=== PATIENT | female | born 1950 | race Caucasian/White ===

== ENCOUNTER 2017-03-02 22:28 | Inpatient (IN) | payer MEDICARE, MEDICAID ==
[~2017-03-02] VITALS: Ht 170.2 cm; Wt 56.3 kg
[2017-03-02 22:59] LABS: Basophils # (auto) 0 uL; Basophils % (auto) 0.4 % (0.0-2.0); CONDITION Y; DEFINITIVE SEE PRINTOUT; Eosinophils # (auto) 0 uL; Eosinophils % (auto) 0.3 % (0.0-7.0); Hematocrit 25.4 % (36.0-46.0); Hemoglobin 8.1 g/dL (12.2-16.2); Lymphocytes # (auto) 0.8 uL; Lymphocytes % (auto) 12.2 % (10.0-50.0); Mean Corpuscular Hemoglobin 26.5 pg (28.0-32.0); Mean Corpuscular Hgb Conc. 31.9 g/dL (32.0-36.0); Mean Corpuscular Volume 83.3 fL (80.0-100.0); Monocytes # (auto) 0.4 uL; Monocytes % (auto) 7.2 % (0.0-12.0); Neutrophils # (auto) 4.9 uL; Neutrophils % (auto) 79.9 % (37.0-80.0); Platelet Count (auto) 354 10^3/uL (140-450); Red Cell Distribution Width 18.4 % (11.6-16.0); White Blood Cell 6.1 10^3/uL (4.4-10.8)
[2017-03-02 23:18] LABS: Partial Thromboplastin Time 27.1 sec (22.64-33.71); Prothrombin Time 10.9 sec (9.37-12.3)
[2017-03-02 23:23] LABS: Albumin 2.8 g/dL (3.4-5.0); BUN/Creatinine Ratio 15.4; Calcium 8.2 mg/dL (8.5-10.1); Magnesium 1.8 mg/dL (1.6-2.6); Potassium 3.9 mmol/L (3.5-5.1)
[2017-03-02] MEDS ORDERED: cloNIDine HCL 0.1 MG TAB ONE (23:26)
[2017-03-02 23:27] LABS: Bilirubin, Total 0.3 mg/dL (0.2-1.0); Total Protein 8.2 g/dL (6.4-8.2)
[2017-03-02] MEDS ORDERED: cloNIDine HCL 0.1 MG TAB PO ONE (23:30)
[2017-03-02 23:35] LABS: B-Type Natriuretic Peptide 2632.41 pg/mL (0-100)
[2017-03-02 23:45] LABS: Temperature: 23.7 C (20.0-25.0)
[2017-03-03] MEDS ORDERED: FUROSEMIDE 20 MG/2 ML VIAL IV ONE
[2017-03-03 00:17] LABS: Urine Bilirubin Negative (Negative); Urine Color Yellow (Yellow); Urine Glucose Normal (Normal); Urine Ketone Negative (Negative); Urine Nitrite Negative (Negative); Urine RBC 1 /hpf (0 - 4); Urine Squamous Epithelial Cell FEW /hpf (<5); Urine Urobilinogen Normal (Negative); Urine pH 6.5 (5.0-8.0)
[2017-03-03 00:18] LABS: Urine Blood 1+ /uL (Negative)
[2017-03-03] MEDS ORDERED: METOPROLOL TARTRATE 50 MG TAB PO ONE (04:15)
[2017-03-03] MEDS ORDERED: ENALAPRIL MALEATE 2.5 MG TAB PO ONE (05:45)
[2017-03-03] MEDS ORDERED: ACETAMINOPHEN 325 MG TAB PO PRN (05:45)
[2017-03-03] MEDS ORDERED: ONDANSETRON HCL 4 MG/2 ML VIAL IV PRN (05:45)
[2017-03-03] MEDS ORDERED: DOCUSATE SOD 100 MG CAP PO PRN (05:45)
[2017-03-03] MEDS ORDERED: NITROGLYCERIN 0.4 MG SL TAB SL PRN (05:45)
[2017-03-03] MEDS ORDERED: MORPHINE SULF INJ 2 MG/ML SYRINGE 1ML IV PRN (05:45)
[2017-03-03] MEDS ORDERED: FUROSEMIDE 20 MG TAB PO SCH (06:00)
[2017-03-03] MEDS ORDERED: LOSARTAN POTASSIUM 25 MG TAB PO SCH (10:00)
[2017-03-03] MEDS: ENOXAPARIN SOD 30 MG/0.3 ML SYRINGE SC SCH (10:22)
[2017-03-03] MEDS: FAMOTIDINE 20 MG TAB PO SCH ×2 (10:23→21:40)
[2017-03-03] MEDS: amLODIPine BESYLATE 5 MG TAB PO SCH (10:23)
[2017-03-03] MEDS: HYDROXYCHLOROQUINE SULFATE 200 MG TAB PO SCH ×2 (10:31→21:38)
[2017-03-03] MEDS ORDERED: ASCO500C49 PO (14:02)
[2017-03-03] MEDS ORDERED: CHOL400D PO (14:02)
[2017-03-03] MEDS ORDERED: ALPR1TAB2 PO (14:02)
[2017-03-03] MEDS ORDERED: CALC-386 OR (14:02)
[2017-03-03] MEDS ORDERED: FERR-7 PO (14:02)
[2017-03-03] MEDS ORDERED: FENT50DI2 TD (14:02)
[2017-03-03] MEDS ORDERED: CARI-277 PO (14:02)
[2017-03-03] MEDS ORDERED: HYDR-3682 PO (14:33)
[2017-03-03] MEDS ORDERED: FAM20T PO (14:33)
[2017-03-03] MEDS ORDERED: PANT40T PO (14:33)
[2017-03-03] MEDS ORDERED: AML5T PO (14:33)
[2017-03-03] MEDS ORDERED: OYST500T28 PO (14:33)
[2017-03-03] MEDS ORDERED: FURO20TA3 PO (14:33)
[2017-03-03] MEDS ORDERED: CITA-77 PO (14:33)
[2017-03-03] MEDS ORDERED: HYDR200T PO (14:33)
[2017-03-03] MEDS ORDERED: LOSA25TA9 PO (14:33)
[2017-03-03] MEDS ORDERED: HYDR-2652 PO (14:33)
[2017-03-03 17:00] VITALS: BP 147/72
[2017-03-03] MEDS: FUROSEMIDE 40 MG/4 ML VIAL IV SCH (18:59)
[2017-03-03 19:39] LABS: BUN/Creatinine Ratio 17.8; Calcium 8.1 mg/dL (8.5-10.1); Potassium 4.4 mmol/L (3.5-5.1)
[2017-03-03 19:47] LABS: B-Type Natriuretic Peptide 3565.53 pg/mL (0-100)
[2017-03-03 19:55] LABS: Temperature: 23.3 C (20.0-25.0)
[2017-03-03] MEDS: HYDROcodone-ACET 5/325MG TAB PO PRN (21:39)
[2017-03-03] MEDS: CARVEDILOL 3.125 MG TAB PO SCH (21:41)
[2017-03-03 22:00] VITALS: BP 131/43
[2017-03-03] MEDS ORDERED: POTASSIUM CHL 20 Meq TABLET PO SCH (22:00)
[2017-03-03] MEDS ORDERED: hydrOXYzine HCL 10 MG TAB PO ONE (22:45)
[2017-03-04 05:00] VITALS: BP 140/59
[2017-03-04 05:32] LABS: Basophils # (auto) 0 uL; Basophils % (auto) 0.7 % (0.0-2.0); CONDITION Y; DEFINITIVE SEE PRINTOUT; Eosinophils # (auto) 0.2 uL; Eosinophils % (auto) 3.8 % (0.0-7.0); Hematocrit 25.7 % (36.0-46.0); Hemoglobin 8.2 g/dL (12.2-16.2); Lymphocytes # (auto) 1.7 uL; Lymphocytes % (auto) 30.3 % (10.0-50.0); Mean Corpuscular Hemoglobin 27.1 pg (28.0-32.0); Mean Corpuscular Hgb Conc. 31.9 g/dL (32.0-36.0); Mean Corpuscular Volume 85.2 fL (80.0-100.0); Mean Platelet Volume 7.3 fL (7.4-10.4); Monocytes # (auto) 0.7 uL; Neutrophils % (auto) 53.2 % (37.0-80.0); Platelet Count (auto) 267 10^3/uL (140-450); Red Cell Distribution Width 18.7 % (11.6-16.0); White Blood Cell 5.6 10^3/uL (4.4-10.8)
[2017-03-04 05:55] LABS: Albumin 2.4 g/dL (3.4-5.0); BUN/Creatinine Ratio 18.5; Calcium 7.7 mg/dL (8.5-10.1); Potassium 4.2 mmol/L (3.5-5.1)
[2017-03-04 05:58] LABS: Bilirubin, Total 0.3 mg/dL (0.2-1.0); Total Protein 7.1 g/dL (6.4-8.2)
[2017-03-04] MEDS: FUROSEMIDE 40 MG/4 ML VIAL IV SCH (06:04)
[2017-03-04] MEDS: FAMOTIDINE 20 MG TAB PO SCH ×2 (10:46→21:50)
[2017-03-04] MEDS: amLODIPine BESYLATE 5 MG TAB PO SCH (10:47)
[2017-03-04] MEDS: HYDROXYCHLOROQUINE SULFATE 200 MG TAB PO SCH ×2 (10:47→21:50)
[2017-03-04] MEDS: CARVEDILOL 3.125 MG TAB PO SCH ×2 (10:48→21:48)
[2017-03-04] MEDS: ENOXAPARIN SOD 30 MG/0.3 ML SYRINGE SC SCH (10:49)
[2017-03-04 14:28] VITALS: BP 154/67
[2017-03-04 17:39] VITALS: BP 174/81
[2017-03-04] MEDS: fentaNYL 50MCG/HR 50 MCG/HR PAT TD SCH (18:09)
[2017-03-04] MEDS: ALPRAZolam 0.5 MG TAB PO PRN (18:10)
[2017-03-04] MEDS ORDERED: ALBUAER3 IN (20:26)
[2017-03-04] MEDS: ALBUTEROL SULF 2.5 MG/0.5ML(0.5%) NEB SOLN NEB PRN (21:53)
[2017-03-04 22:00] VITALS: BP 146/67
[2017-03-04 22:23] VITALS: BP 146/67
[2017-03-05 05:00] VITALS: BP 135/56
[2017-03-05 05:33] LABS: Basophils # (auto) 0 uL; Basophils % (auto) 0.2 % (0.0-2.0); CONDITION Y; DEFINITIVE SEE PRINTOUT; Eosinophils # (auto) 0.2 uL; Eosinophils % (auto) 2.4 % (0.0-7.0); Hematocrit 27.3 % (36.0-46.0); Hemoglobin 8.6 g/dL (12.2-16.2); Lymphocytes # (auto) 1.3 uL; Lymphocytes % (auto) 16.5 % (10.0-50.0); Mean Corpuscular Hemoglobin 26.5 pg (28.0-32.0); Mean Corpuscular Hgb Conc. 31.7 g/dL (32.0-36.0); Mean Corpuscular Volume 83.6 fL (80.0-100.0); Mean Platelet Volume 7.4 fL (7.4-10.4); Monocytes # (auto) 1.1 uL; Monocytes % (auto) 14.1 % (0.0-12.0); Neutrophils # (auto) 5.2 uL; Neutrophils % (auto) 66.8 % (37.0-80.0); Platelet Count (auto) 335 10^3/uL (140-450); Red Cell Distribution Width 18.7 % (11.6-16.0); White Blood Cell 7.8 10^3/uL (4.4-10.8)
[2017-03-05 05:53] LABS: BUN/Creatinine Ratio 22.9; Calcium 8.3 mg/dL (8.5-10.1); Potassium 3.9 mmol/L (3.5-5.1)
[2017-03-05 09:00] VITALS: BP 155/70
[2017-03-05] MEDS: FAMOTIDINE 20 MG TAB PO SCH ×2 (09:15→21:52)
[2017-03-05] MEDS: HYDROXYCHLOROQUINE SULFATE 200 MG TAB PO SCH ×2 (09:15→21:51)
[2017-03-05] MEDS: amLODIPine BESYLATE 5 MG TAB PO SCH (09:16)
[2017-03-05] MEDS: ENOXAPARIN SOD 30 MG/0.3 ML SYRINGE SC SCH (09:16)
[2017-03-05] MEDS: ALPRAZolam 0.5 MG TAB PO PRN ×2 (09:22→21:53)
[2017-03-05] MEDS: CARVEDILOL 3.125 MG TAB PO SCH ×2 (10:24→21:51)
[2017-03-05 13:00] VITALS: BP 143/68
[2017-03-05 17:00] VITALS: BP 122/61
[2017-03-05] MEDS: FUROSEMIDE 40 MG TAB PO SCH (19:13)
[2017-03-05] MEDS: ALBUTEROL SULF 2.5 MG/0.5ML(0.5%) NEB SOLN NEB PRN (19:29)
[2017-03-05 21:53] VITALS: BP 152/70
[2017-03-06 05:34] VITALS: BP 140/69
[2017-03-06 05:35] LABS: Basophils # (auto) 0 uL; Basophils % (auto) 0.4 % (0.0-2.0); CONDITION Y; DEFINITIVE SEE PRINTOUT; Eosinophils # (auto) 0.3 uL; Eosinophils % (auto) 4.5 % (0.0-7.0); Hematocrit 27.2 % (36.0-46.0); Hemoglobin 8.6 g/dL (12.2-16.2); Lymphocytes # (auto) 1.3 uL; Lymphocytes % (auto) 19.4 % (10.0-50.0); Mean Corpuscular Hemoglobin 26.2 pg (28.0-32.0); Mean Corpuscular Hgb Conc. 31.4 g/dL (32.0-36.0); Mean Corpuscular Volume 83.3 fL (80.0-100.0); Mean Platelet Volume 7.5 fL (7.4-10.4); Monocytes # (auto) 0.9 uL; Monocytes % (auto) 13.7 % (0.0-12.0); Neutrophils # (auto) 4.2 uL; Platelet Count (auto) 348 10^3/uL (140-450); Red Cell Distribution Width 18.4 % (11.6-16.0); White Blood Cell 6.8 10^3/uL (4.4-10.8)
[2017-03-06 05:53] LABS: BUN/Creatinine Ratio 24.3; Calcium 7.9 mg/dL (8.5-10.1); Potassium 4.1 mmol/L (3.5-5.1)
[2017-03-06] MEDS: FUROSEMIDE 40 MG TAB PO SCH ×2 (06:35→17:56)
[2017-03-06 08:00] VITALS: BP 126/78
[2017-03-06] MEDS: ENOXAPARIN SOD 30 MG/0.3 ML SYRINGE SC SCH (10:27)
[2017-03-06] MEDS: ALPRAZolam 0.5 MG TAB PO PRN ×2 (10:27→22:35)
[2017-03-06] MEDS: amLODIPine BESYLATE 5 MG TAB PO SCH (10:28)
[2017-03-06] MEDS: HYDROXYCHLOROQUINE SULFATE 200 MG TAB PO SCH ×2 (10:28→22:35)
[2017-03-06] MEDS: FAMOTIDINE 20 MG TAB PO SCH (10:28)
[2017-03-06] MEDS: CARVEDILOL 3.125 MG TAB PO SCH ×2 (10:28→22:35)
[2017-03-06 12:00] VITALS: BP 146/69
[2017-03-06] MEDS: ALBUTEROL SULF 2.5 MG/0.5ML(0.5%) NEB SOLN NEB PRN (12:10)
[2017-03-06 17:00] VITALS: BP 162/76
[2017-03-06 22:00] VITALS: BP 103/53
[2017-03-07 05:00] VITALS: BP 152/67
[2017-03-07] MEDS: FUROSEMIDE 40 MG TAB PO SCH ×2 (05:41→17:42)
[2017-03-07 06:12] LABS: BUN/Creatinine Ratio 24.2; Calcium 8.2 mg/dL (8.5-10.1); Potassium 4.2 mmol/L (3.5-5.1)
[2017-03-07 09:00] VITALS: BP 127/73
[2017-03-07] MEDS: HYDROXYCHLOROQUINE SULFATE 200 MG TAB PO SCH ×2 (09:21→22:25)
[2017-03-07] MEDS: FAMOTIDINE 20 MG TAB PO SCH (09:21)
[2017-03-07] MEDS: ENOXAPARIN SOD 30 MG/0.3 ML SYRINGE SC SCH (09:21)
[2017-03-07] MEDS: CARVEDILOL 3.125 MG TAB PO SCH ×2 (09:22→22:27)
[2017-03-07] MEDS: amLODIPine BESYLATE 5 MG TAB PO SCH (09:22)
[2017-03-07 13:00] VITALS: BP 130/78
[2017-03-07 17:00] VITALS: BP 128/87
[2017-03-07] MEDS: fentaNYL 50MCG/HR 50 MCG/HR PAT TD SCH (18:00)
[2017-03-07 22:00] VITALS: BP 119/54
[2017-03-07] MEDS: ALPRAZolam 0.5 MG TAB PO PRN (22:27)
[2017-03-08 02:06] VITALS: BP 156/72
[2017-03-08 05:00] VITALS: BP 137/71
[2017-03-08 06:33] LABS: BUN/Creatinine Ratio 23.4; Calcium 8.5 mg/dL (8.5-10.1); Magnesium 1.9 mg/dL (1.6-2.6); Potassium 4.5 mmol/L (3.5-5.1)
[2017-03-08] MEDS: FUROSEMIDE 40 MG TAB PO SCH (06:49)
[2017-03-08 09:00] VITALS: BP 139/71
[2017-03-08] MEDS: CARVEDILOL 3.125 MG TAB PO SCH ×2 (10:13→21:49)
[2017-03-08] MEDS: ENOXAPARIN SOD 30 MG/0.3 ML SYRINGE SC SCH (10:14)
[2017-03-08] MEDS: amLODIPine BESYLATE 5 MG TAB PO SCH (10:14)
[2017-03-08] MEDS: HYDROXYCHLOROQUINE SULFATE 200 MG TAB PO SCH ×2 (10:14→21:43)
[2017-03-08] MEDS: FAMOTIDINE 20 MG TAB PO SCH (10:14)
[2017-03-08] MEDS: ALPRAZolam 0.5 MG TAB PO PRN ×2 (10:18→21:50)
[2017-03-08 13:00] VITALS: BP 142/69
[2017-03-08] MEDS ORDERED: MAGNESIUM OXIDE 400 MG TAB PO ONE (15:15)
[2017-03-08 17:00] VITALS: BP 128/67
[2017-03-08] MEDS: TEMAZEPAM 15 MG CAP PO PRN (21:50)
[2017-03-08 22:00] VITALS: BP 126/55
[2017-03-09] MEDS: HYDROcodone-ACET 5/325MG TAB PO PRN ×2 (00:48→19:58)
[2017-03-09 05:00] VITALS: BP 139/67
[2017-03-09 05:50] LABS: Basophils # (auto) 0 uL; Basophils % (auto) 0.3 % (0.0-2.0); CONDITION Y; DEFINITIVE SEE PRINTOUT; Eosinophils # (auto) 0.4 uL; Eosinophils % (auto) 6.5 % (0.0-7.0); Hematocrit 27.1 % (36.0-46.0); Hemoglobin 8.7 g/dL (12.2-16.2); Lymphocytes # (auto) 1.3 uL; Lymphocytes % (auto) 20.8 % (10.0-50.0); Mean Corpuscular Hemoglobin 26.5 pg (28.0-32.0); Mean Corpuscular Volume 82.7 fL (80.0-100.0); Mean Platelet Volume 7.8 fL (7.4-10.4); Monocytes % (auto) 16.4 % (0.0-12.0); Neutrophils # (auto) 3.5 uL; Platelet Count (auto) 377 10^3/uL (140-450); Red Cell Distribution Width 18.2 % (11.6-16.0); White Blood Cell 6.2 10^3/uL (4.4-10.8)
[2017-03-09] MEDS: FUROSEMIDE 40 MG TAB PO SCH (06:13)
[2017-03-09 06:14] LABS: BUN/Creatinine Ratio 23.1; Calcium 8.5 mg/dL (8.5-10.1); Potassium 4.1 mmol/L (3.5-5.1)
[2017-03-09 08:00] VITALS: BP 162/85
[2017-03-09] MEDS: ENOXAPARIN SOD 30 MG/0.3 ML SYRINGE SC SCH (10:04)
[2017-03-09] MEDS: CARVEDILOL 3.125 MG TAB PO SCH ×2 (10:05→21:50)
[2017-03-09] MEDS: amLODIPine BESYLATE 5 MG TAB PO SCH (10:05)
[2017-03-09] MEDS: HYDROXYCHLOROQUINE SULFATE 200 MG TAB PO SCH ×2 (10:05→21:20)
[2017-03-09] MEDS: FAMOTIDINE 20 MG TAB PO SCH (10:05)
[2017-03-09] MEDS ORDERED: SODIUM CHLORIDE 0.9% 1,000 ML IV ONE (11:45)
[2017-03-09 13:00] VITALS: BP 130/56
[2017-03-09] MEDS: ACETYLCYSTEINE ORAL for CIN 20%(200MG/ML) 4ML PO SCH ×2 (14:48→21:49)
[2017-03-09 17:24] VITALS: BP 134/69
[2017-03-09] MEDS: ALPRAZolam 0.5 MG TAB PO PRN (17:59)
[2017-03-09 22:00] VITALS: BP 152/68
[2017-03-09] MEDS: TEMAZEPAM 15 MG CAP PO PRN (22:06)
[2017-03-10 05:00] VITALS: BP 143/69
[2017-03-10] MEDS: FUROSEMIDE 40 MG TAB PO SCH (05:44)
[2017-03-10 06:14] LABS: Partial Thromboplastin Time 28.1 sec (22.64-33.71); Prothrombin Time 10.9 sec (9.37-12.3)
[2017-03-10] MEDS: HYDROcodone-ACET 5/325MG TAB PO PRN ×2 (06:23→11:35)
[2017-03-10 08:14] LABS: Albumin 2.5 g/dL (3.4-5.0); BUN/Creatinine Ratio 25.9; Bilirubin, Total 0.1 mg/dL (0.2-1.0); Calcium 8.9 mg/dL (8.5-10.1); Potassium 4.7 mmol/L (3.5-5.1); Total Protein 7.6 g/dL (6.4-8.2)
[2017-03-10 09:00] VITALS: BP 143/69
[2017-03-10 09:07] LABS: Albumin 2.9 g/dL (2.9-4.4); Alpha-1-Globulin 0.3 g/dL (0.0-0.4); Protein Total Serum 7.1 g/dL (6.0-8.5)
[2017-03-10] MEDS: ALPRAZolam 0.5 MG TAB PO PRN (09:40)
[2017-03-10] MEDS: ENOXAPARIN SOD 30 MG/0.3 ML SYRINGE SC SCH (09:40)
[2017-03-10] MEDS: FAMOTIDINE 20 MG TAB PO SCH (09:41)
[2017-03-10] MEDS: HYDROXYCHLOROQUINE SULFATE 200 MG TAB PO SCH (09:41)
[2017-03-10] MEDS: amLODIPine BESYLATE 5 MG TAB PO SCH (09:41)
[2017-03-10] MEDS: CARVEDILOL 3.125 MG TAB PO SCH (09:41)
[2017-03-10] MEDS: ACETYLCYSTEINE ORAL for CIN 20%(200MG/ML) 4ML PO SCH ×2 (10:00→11:25)
[2017-03-10 13:00] VITALS: BP 130/70
[2017-03-10] MEDS ORDERED: FURO20TA3 PO (13:11)
[2017-03-10 13:39] VITALS: BP 130/70
== END 2017-03-10 15:00 | disposition home or self-care (01) | DRG 682 ==
LOC: ER 22:28 → EDBD 22:28 → TELE 22:29 → TELE-E-ADS 03-03 13:37 → TELE-WESTW 03-03 17:00
PROVIDERS: ADMIT Nurse Practitioner; ATTEND Internal Medicine Pulmonary Disease
DX: N17.0 Acute kidney failure with tubular necrosis (principal); I50.33 Acute on chronic diastolic (congestive) heart failure; E43 Unspecified severe protein-calorie malnutrition; I13.0 Hypertensive heart and chronic kidney disease with heart failure and stage 1 through stage 4 chronic kidney disease, or unspecified chronic kidney disease; J98.11 Atelectasis; N18.4 Chronic kidney disease, stage 4 (severe); J44.9 Chronic obstructive pulmonary disease, unspecified; D63.8 Anemia in other chronic diseases classified elsewhere; F15.10 Other stimulant abuse, uncomplicated; F17.210 Nicotine dependence, cigarettes, uncomplicated; I25.10 Atherosclerotic heart disease of native coronary artery without angina pectoris; I27.2 Other secondary pulmonary hypertension; I49.9 Cardiac arrhythmia, unspecified; I70.0 Atherosclerosis of aorta; I08.3 Combined rheumatic disorders of mitral, aortic and tricuspid valves; K72.90 Hepatic failure, unspecified without coma; K74.60 Unspecified cirrhosis of liver; I35.2 Nonrheumatic aortic (valve) stenosis with insufficiency; B19.20 Unspecified viral hepatitis C without hepatic coma; Z80.1 Family history of malignant neoplasm of trachea, bronchus and lung; Z98.1 Arthrodesis status; Z82.3 Family history of stroke; Z82.49 Family history of ischemic heart disease and other diseases of the circulatory system
CPT/HCPCS: 36415; 71010; 76775; 80048; 80053; 80307; 81001; 82570; 83735; 83880; 84155; 84156; 84165; 84166; 84300; 84484; 85025; 85610; 85730; 86038; 86592; 86803; 87340; 93005; 93306; 94640; 96372; 96374; J2405